=== PATIENT | male | born 1945 | race Caucasian/White ===

== ENCOUNTER 2022-01-01 09:35 | Observation (INO) | payer MEDICARE ==
--- NOTE | 2022-01-01 09:55 | ERPHSYRPT ---
- History of Present Illness Time Seen by Provider: 01/01/22 09:55 Source: patient Exam Limitations: no limitations Patient Subjective Stated Complaint: pt here for left calf pain for 4 days now, no injury, states hurts to walk on it Triage Nursing Assessment: pt alert, walked in, resp easy, skin w/d/p, no redness or swelling to right leg Physician History: This is a 76-year-old white male who has been complaining of left calf pain for 4 days. Patient denies any injury to this area. Patient said the left calf dunia ts to walk. Pain is worse in the morning and evening. Patient's primary care physician is Dr. Eagle. Patient went to the [facility] this morning and they ordered an ultrasound of the left lower extremity. However, I then decided to send the patient to the emergency room after the venous ultrasound was ordered. Patient denies chest pain. Patient denies cough. Patient denies hemoptysis. Patient denies shortness of breath Method of Injury: other Occurred: days ago (4) Quality: constant, aching Severity of Pain-Max: mild (To moderate) Severity of Pain-Current: mild (To moderate) Modifying Factors: Improves With: movement Associated Symptoms: other (Left calf hurts when he does ambulate but he can ambulate) Allergies/Adverse Reactions: No Known Drug Allergies Allergy (Unverified 01/01/22 09:47) Home Medications: Finasteride 5 mg [Proscar 5 MG] 5 mg PO DAILY 01/01/22 [History] Gabapentin [Neurontin] 600 mg PO TID 01/01/22 [History] Tamsulosin HCl 0.4 mg [Flomax 0.4 MG] 0.4 mg PO DAILY 01/01/22 [History] Hx Influenza Vaccination/Date Given: No Hx Pneumococcal Vaccination/Date Given: Yes Immunizations Up to Date: Yes Travel Risk - International Travel Have you traveled outside of the country in past 3 weeks: No - Coronavirus Screening Are you exhibiting any of the following symptoms?: No Close contact with a COVID-19 positive Pt in past 14-21 Days: No - Vaccine Status Have you recieved a Covid-19 vaccination: Yes Super[employer]ading: Moderna - Vaccination Dates Date of 2cond Vaccination (if applicable): 2020 - Review of Systems Constitutional: No Symptoms Eyes: No Symptoms Ears, Nose, & Throat: No Symptoms Respiratory: No Symptoms Cardiac: No Symptoms Abdominal/Gastrointestinal: No Symptoms Genitourinary Symptoms: No Symptoms Musculoskeletal: Myalgias (Left calf pain) Skin: No Symptoms Neurological: No Symptoms Psychological: No Symptoms Endocrine: No Symptoms Hematologic/Lymphatic: No Symptoms Immunological/Allergic: No Symptoms All Other Systems: Reviewed and Negative - Past Medical History Pertinent Past Medical History: No - Past Surgical History Past Surgical History: Yes Gastrointestinal: Appendectomy Musculoskeletal: Orthopedic Surgery Other Surgical History: shoulder,knee - Social History Smoking Status: Current some day smoker Exposure to second hand smoke: Yes Drug Use: none Patient Lives Alone: No - Nursing Vital Signs Nursing Vital Signs: Initial Vital Signs Temperature 97.4 F 01/01/22 09:53 Pulse Rate 75 01/01/22 09:53 Respiratory Rate 18 01/01/22 09:53 Blood Pressure 156/85 01/01/22 09:53 O2 Sat by Pulse Oximetry 97 01/01/22 09:53 Pain Scale Pain Intensity 6 - Physical Exam General Appearance: no apparent distress, alert, anxiety Eyes, Ears, Nose, Throat Exam: normal ENT inspection, moist mucous membranes Neck Exam: normal inspection, non-tender, supple, full range of motion Cardiovascular/Respiratory Exam: chest non-tender, no respiratory distress Gastrointestinal/Abdominal Exam: non-tender Back Exam: normal inspection, normal range of motion, No CVA tenderness, No vertebral tenderness Hips Exam: bilateral: non-tender, normal inspection, normal range of motion, no evidence of injury Legs Exam: right leg: non-tender, no evidence of injury, left leg: abrasions (Left pretibial region), soft tissue tenderness, bilateral leg: normal range of motion, other (Multiple superficial and large varicosities bilateral lower extremities) Knees Exam: bilateral knee: non-tender, normal inspection, normal range of motion, no evidence of injury Ankle Exam: bilateral ankle: non-tender, normal inspection, normal range of motion, no evidence of injury Neuro/Tendon Exam: normal sensation, normal motor functions, normal tendon functions Mental Status Exam: alert, oriented x 3, cooperative Skin Exam: normal color, warm, dry SpO2 Interpretation: normal SpO2: 97 O2 Delivery: Room Air Ordered Tests: Active Orders 24 hr Category Date Time Status IV Insertion STAT Care 01/01/22 12:55 Active ABDOMEN AND PELVIS W/0 CONTRAS [CT] Stat Exams 01/01/22 11:43 Taken CHEST WITHOUT CONTRAST [CT] Stat Exams 01/01/22 11:43 Taken VENOUS UNILAT/LIMITED EXTREMIT [US] Stat Exams 01/01/22 11:03 Taken CBC W DIFF Stat Lab 01/01/22 10:00 Completed CMP Stat Lab 01/01/22 10:00 Completed MAGNESIUM Stat Lab 01/01/22 10:00 Completed Transfer Order Routine Transfer 01/01/22 Ordered Medication Summary Discontinued Medications Generic Name Dose Route Start Last Admin Trade Name Ike PRN Reason Stop Dose Admin Enoxaparin Sodium 100 mg 01/01/22 11:31 01/01/22 12:23 Enoxaparin Sodium 120 Mg/0.8 Ml Syringe SQ 01/01/22 11:32 100 mg STAT STA Administration Enoxaparin Sodium Confirm 01/01/22 12:23 Enoxaparin Sodium 120 Mg/0.8 Ml Syringe Administered 01/01/22 12:24 Dose 120 mg SQ .[employer] ONE Lab/Rad Data: Laboratory Result Diagrams 01/01/22 10:00 01/01/22 10:00 Laboratory Results 01/01/22 01/01/22 01/01/22 Range/Units 11:59 10:00 10:00 WBC 5.6 (4.0-10.5) x10^3/uL RBC 3.79 L (4.1-5.6) x10^6/uL Hgb 12.2 L (12.5-18.0) g/dL Hct 36.1 L (42-50) % MCV 95.3 (78-100) fL MCH 32.2 H (26-32) pg MCHC 33.8 (32-36) g/dL RDW 12.0 (11.5-14.0) % Plt Count 185 (150-450) x10^3/uL MPV 9.0 (7.5-11.0) fL Gran % 59.9 (36.0-66.0) % Immature Gran % (Auto) 0.5 H (0.00-0.4) % Nucleat RBC Rel Count 0.0 (0.00-0.1) % Eos # (Auto) 0.30 (0-0.5) x10^3/uL Immature Gran # (Auto) 0.03 (0.00-0.03) x10^3u/L Absolute Lymphs (auto) 1.34 (1.0-4.6) x10^3/uL Absolute Monos (auto) 0.52 (0.0-1.3) x10^3/uL Absolute Nucleated RBC 0.00 (0.00-0.01) x10^3u/L Lymphocytes % 24.1 (24.0-44.0) % Monocytes % 9.4 (0.0-12.0) % Eosinophils % 5.4 H (0.00-5.0) % Basophils % 0.7 (0.0-0.4) % Absolute Granulocytes 3.33 (1.4-6.9) x10^3/uL Basophils # 0.04 (0-0.4) x10^3/uL Sodium 136 L (137-145) mmol/L Potassium 4.4 (3.5-5.1) mmol/L Chloride 103 (98-107) mmol/L Carbon Dioxide 27 (22-30) mmol/L Anion Gap 10.1 (5-15) MEQ/L BUN 23 H (9-20) mg/dL Creatinine 1.83 H (0.66-1.25) mg/dL Estimated GFR 38.7 ML/MIN Glucose 128 H (74-106) mg/dL Calcium 8.4 (8.4-10.2) mg/dL Magnesium 2.3 (1.6-2.3) mg/dL Total Bilirubin 1.20 (0.2-1.3) mg/dL AST 26 (17-59) U/L ALT 16 (0-50) U/L Alkaline Phosphatase 39 (38-126) U/L Serum Total Protein 7.1 (6.3-8.2) g/dL Albumin 4.0 (3.5-5.0) g/dL Influenza Type A Ag NEGATIVE (NEGATIVE) Influenza Type B Ag NEGATIVE (NEGATIVE) RSV (PCR) NEGATIVE (Negative) SARS-CoV-2 (PCR) NEGATIVE (NEGATIVE) - Progress Progress: unchanged, re-examined Progress Note: 01/01/22 12:04 Medical decision making: This patient has extensive left lower extremity DVT. This finding was reported to me by the operating room surgical technologist. I contacted Dr. Rueda who is covering for Dr. Eagle, this patient's primary care physician. Patient has a low GFR chronically. Therefore, we cannot perform a CT of the chest. We will anticoagulate him with Lovenox and then start him with oral Xarelto beginning tomorrow morning. We will then order a nuclear medicine VQ scan for 01/03/2022. Dr. Rueda wanted me to order a CT of the chest and abdomen and pelvis without contrast to evaluate for malignancy. I will order these tests and have them performed prior to him being transferred to the floor. Patient will be on a telemetry bed 01/01/22 12:59 CT of chest without contrast shows multiple bilateral lung nodules. Etiology unknown 01/01/22 13:01 CT of the abdomen without contrast shows gallstones and hepatosplenomegaly. Discussed with : Aaron Counseled pt/family regarding: lab results, diagnosis, rad results - Departure Departure Disposition: Home Clinical Impression: Left leg DVT, Lung nodule, multiple, Cholelithiasis, Hepatosplenomegaly Condition: Stable Critical Care Time: No Referrals: JEOVANNY EAGLE MD [Primary Care Provider] - Follow up/PCP as directed
[2022-01-01 10:36] LABS: Absolute Neutrophil Ct (ANC) 3.33 x10^3/uL (1.4-6.9); Basophil (Absolute #) 0.04 x10^3/uL (0-0.4); Eosinophil % 5.4 % (0.00-5.0); Hematocrit 36.1 % (42-50); Hemoglobin 12.2 g/dL (12.5-18.0); Lymphocyte (Absolute #) 1.34 x10^3/uL (1.0-4.6); Lymphocytes % 24.1 % (24.0-44.0); Mean Cell Volume 95.3 fL (78-100); Mean Corpuscular Hemoglobin 32.2 pg (26-32); Mean Corpuscular Hgb Concent. 33.8 g/dL (32-36); Monocyte (Absolute #) 0.52 x10^3/uL (0.0-1.3); Monocytes % 9.4 % (0.0-12.0); Neutrophil % 59.9 % (36.0-66.0); Platelet Count 185 x10^3/uL (150-450); Red Blood Count 3.79 x10^6/uL (4.1-5.6); White Blood Count 5.6 x10^3/uL (4.0-10.5)
[2022-01-01 11:06] LABS: ANION GAP 10.1 MEQ/L (5-15); BILIRUBIN,TOTAL 1.2 mg/dL (0.2-1.3); Calcium 8.4 mg/dL (8.4-10.2); Creatinine 1 1.83 mg/dL (0.66-1.25); EST GLOMERULAR FILTRATION RATE 38.7 ML/MIN; MAGNESIUM 2.3 mg/dL (1.6-2.3); Potassium 4.4 mmol/L (3.5-5.1); Total Protein 7.1 g/dL (6.3-8.2)
[2022-01-01] MEDS ORDERED: ENOXAPARIN SODIUM SQ STA (11:31)
[2022-01-01] MEDS ORDERED: ENOXAPARIN SODIUM SQ ONE (12:23)
[2022-01-01 12:40] LABS: INFLUENZA A NEGATIVE (NEGATIVE); INFLUENZA B NEGATIVE (NEGATIVE); RESPIRATORY SYNCTIAL VIRUS NEGATIVE (Negative); SARS-CoV-2 Xpert Express NEGATIVE (NEGATIVE)
[2022-01-01] MEDS ORDERED: TYLENOL 325 MG PO PRN (13:21)
[2022-01-01] MEDS ORDERED: Sodium Chloride 0.9% 1000 ML 1,000 ML IV SCH (13:21)
[2022-01-01] MEDS ORDERED: Zofran 4 MG/2 ML VIAL IV PRN (13:21)
[2022-01-01] MEDS ORDERED: xanAX 0.5 MG PO PRN (13:46)
[2022-01-01] MEDS ORDERED: FLUZONE HIGH-DOSE QUAD 2022-23 IM ONE (13:59)
[2022-01-01] MEDS ORDERED: NON-FORMULARY ITEM (Gabapentin [Neurontin] 600 MG Tablet) PO SCH (15:00)
[2022-01-01] MEDS: NEURONTIN PO SCH ×2 (15:53→22:09)
[2022-01-01] MEDS: Flomax 0.4 MG PO SCH (15:53)
[2022-01-01] MEDS: Tricor 145 MG PO SCH (15:54)
[2022-01-01] MEDS: Proscar 5 MG PO SCH (15:54)
--- NOTE | 2022-01-01 19:03 | XRAY ---
Indication: Evaluating for malignancy. Extensive left leg DVT. Multiple contiguous axial images obtained through the chest without contrast. Comparison: None There are a few scattered bilateral tiny noncalcified indeterminant nodules, largest 5 mm left upper lobe. Tiny left posterior gutter calcified granuloma. No infiltrate, consolidation, or effusion. Heart not enlarged with scattered coronary calcifications. Aorta mildly arteriosclerotic. Tiny left infrahilar calcified nodes. No pathologic mediastinal lymphadenopathy. Bony thorax intact with mild degenerative changes throughout the spine. CT abdomen/pelvis reported separately. Impression: Tiny bilateral indeterminate noncalcified micronodules. Findings possibly granulomatous as there is evidence for old granulomatous disease elsewhere. Outside comparison studies recommended. If not, recommend follow-up per Fleischner guidelines. Comment: Preliminary interpretation made by [facility] [place]. No critical discrepancy.
--- NOTE | 2022-01-01 19:05 | XRAY ---
Indication: Evaluating for malignancy. Extensive left leg DVT. Multiple contiguous axial images obtained through the abdomen and pelvis without contrast. Comparison: None CT chest reported separately. Noncontrasted stomach and bowel loops appear nonobstructed. Previous appendectomy. No free fluid/air. 1.3 x 2.7 cm gallstone. 15 cm splenomegaly. Remaining liver, gallbladder, pancreas, spleen, adrenal glands, kidneys, ureters, and bladder are unremarkable for noncontrast exam. Moderate scattered aortoiliac calcifications without AAA. Osseous structures intact with mild degenerative changes throughout the thoracolumbar spine. Small fatty left inguinal hernia. Impression: 1. Cholelithiasis, splenomegaly, degenerative spondylosis, small fatty left inguinal hernia, and arteriosclerotic disease. 2. Remaining CT abdomen/pelvis without contrast exam is negative. Comment: Preliminary interpretation made by [facility]. No critical discrepancy.
--- NOTE | 2022-01-01 19:07 | XRAY ---
Indication: Pain. Two-dimensional sonogram and color Doppler imaging of the major venous vessels of the left leg performed. Comparison: None There are occluding and nonoccluding thrombi throughout the visualized common femoral, deep femoral, femoral, and posterior tibial veins. Impression: Diffuse occluding and nonoccluding DVT throughout the left leg. Comment: Preliminary report was given.
[2022-01-01] MEDS ORDERED: ENOXAPARIN SODIUM SQ SCH (22:00)
[2022-01-01] MEDS: XARELTO 10 MG TABLET PO SCH (22:10)
[2022-01-02 04:08] VITALS: O2SAT 96
[2022-01-02 04:42] LABS: Absolute Neutrophil Ct (ANC) 2.32 x10^3/uL (1.4-6.9); Basophil (Absolute #) 0.04 x10^3/uL (0-0.4); Eosinophil % 7.6 % (0.00-5.0); Eosinophil (Absolute #) 0.38 x10^3/uL (0-0.5); Hematocrit 35.7 % (42-50); Hemoglobin 12.1 g/dL (12.5-18.0); Lymphocytes % 34.2 % (24.0-44.0); Mean Cell Volume 93.2 fL (78-100); Mean Corpuscular Hemoglobin 31.6 pg (26-32); Mean Corpuscular Hgb Concent. 33.9 g/dL (32-36); Mean Platelet Volume 9.3 fL (7.5-11.0); Monocytes % 10.1 % (0.0-12.0); Neutrophil % 46.7 % (36.0-66.0); Platelet Count 213 x10^3/uL (150-450); Red Blood Count 3.83 x10^6/uL (4.1-5.6); Red Cell Distribution Width 12.3 % (11.5-14.0)
[2022-01-02 04:57] LABS: ALBUMIN 3.8 g/dL (3.5-5.0); ANION GAP 9.2 MEQ/L (5-15); BILIRUBIN,TOTAL 1.1 mg/dL (0.2-1.3); Calcium 8.4 mg/dL (8.4-10.2); Creatinine 1 1.81 mg/dL (0.66-1.25); EST GLOMERULAR FILTRATION RATE 39.1 ML/MIN; Potassium 4.4 mmol/L (3.5-5.1)
[2022-01-02 08:10] VITALS: PULSE 63
[2022-01-02] MEDS: NEURONTIN PO SCH (09:05)
[2022-01-02] MEDS: XARELTO 10 MG TABLET PO SCH (09:05)
[2022-01-02] MEDS: Proscar 5 MG PO SCH (09:06)
[2022-01-02] MEDS: Tricor 145 MG PO SCH (09:06)
[2022-01-02] MEDS ORDERED: NON-FORMULARY ITEM (Fenofibrate [Fenofibrate] 160 MG Tablet) PO SCH (10:00)
[2022-01-02] MEDS: Flomax 0.4 MG PO SCH (12:12)
[2022-01-02 12:14] VITALS: BP 120/60
--- NOTE | 2022-01-02 13:02 | PCM.SSS ---
History of Present Illness - Chief Complaint Chief Complaint: left calf pain for 4 days History of Present Illness: is a 76 year old male.who has been complaining of left calf pain for 4 days. Patient denies any injury to this area. Patient said the left calf hurts to walk. Pain is worse in the morning and evening. Patient's primary care physician is Dr. Eagle. Patient went to [facility] this morning and they ordered an ultrasound of the left lower extremity. However, I then decided to send the patient to the emergency room after the venous ultrasound was ordered. Patient denies chest pain. Patient denies cough. Patient denies hemoptysis. Patient denies shortness of breath Method of Injury: other Occurred: days ago (4) Quality: constant, aching Severity of Pain-Max: mild (To moderate) Severity of Pain-Current: mild (To moderate) Modifying Factors: Improves With: movement Associated Symptoms: other (Left calf hurts when he does ambulate but he can ambulate) - Review of Systems Constitutional: No Fever, No Chills Eyes: No Symptoms Ears, Nose, & Throat: No Symptoms Respiratory: No Cough, No Short Of Breath Cardiac: No Chest Pain, No Edema, No Syncope Abdominal/Gastrointestinal: No Abdominal Pain, No Nausea, No Vomiting, No Diarrhea Genitourinary Symptoms: No Dysuria Musculoskeletal: Other (left calf pain), No Back Pain, No Neck Pain Skin: No Rash Neurological: No Dizziness, No Focal Weakness, No Sensory Changes Psychological: No Symptoms Endocrine: No Symptoms Hematologic/Lymphatic: No Symptoms Immunological/Allergic: No Symptoms Medications & Allergies Home Medications: Home Medication List ALPRAZolam [Alprazolam] 0.5 mg PO TID PRN 01/01/22 [History Confirmed 01/01/22] Fenofibrate 160 mg PO DAILY 01/01/22 [History Confirmed 01/01/22] Finasteride 5 mg [Proscar 5 MG] 5 mg PO DAILY 01/01/22 [History Confirmed 01/01/22] Gabapentin [Neurontin] 600 mg PO TID 01/01/22 [History Confirmed 01/01/22] Tamsulosin HCl 0.4 mg [Flomax 0.4 MG] 0.8 mg PO LUNCH 01/01/22 [History Confirmed 01/01/22] Rivaroxaban [Xarelto] 15 mg PO BID 21 Days #42 tablet 01/02/22 [Rx] Allergies/Adverse Reactions: Allergies Allergy/AdvReac Type Severity Reaction Status Date / Time No Known Drug Allergies Allergy Unverified 01/01/22 09:47 - Past Medical History Past Medical History: No Cardiac History: No Pertinent History Respiratory History: No Pertinent History, COPD, Other (multiple lung granulomas) Endocrine Medical History: No Pertinent History Musculoskelatal History: Arthritis, Fractures GI Medical History: No Pertinent History History: No Pertinent History Pyscho-Social History: Anxiety Male Reproductive Disorders: No Pertinent History - Past Surgical History Past Surgical History: Yes Neuro Surgical History: No Pertinent History Cardiac History: No Pertinent History Respiratory Surgery: No Pertinent History GI Surgical History: Appendectomy Genitourinary Surgical Hx: No Pertinent History Musculskeletal Surgical Hx: Orthopedic Surgery Male Surgical History: No Pertinent History Other Surgical History: shoulder, knee - Social History Smoking Status: Current some day smoker Exposure to second hand smoke: Yes Alcohol: None Drug Use: none - Physical Exam Vital Signs: Vital Signs - 24 hr Temp Pulse Resp BP Pulse Ox 01/02/22 12:00 63 18 120/60 01/02/22 08:00 97.3 F 63 18 109/67 96 01/02/22 04:00 97.6 F 76 18 105/63 96 01/02/22 00:00 17 01/01/22 23:51 97.8 F 69 17 123/58 97 01/01/22 20:00 97.6 F 74 20 117/76 96 01/01/22 16:00 97.5 F 71 18 120/65 96 01/01/22 13:51 97.3 F 66 18 120/73 97 01/01/22 13:01 97 General Appearance: no apparent distress, alert Neurologic Exam: alert, oriented x 3, cooperative, normal mood/affect, nml cerebellar function, nml station & gait, sensation nml, No motor deficits Eye Exam: PERRL/EOMI, eyes nml inspection Ears, Nose, Throat Exam: normal ENT inspection, TMs normal, pharynx normal, moist mucous membranes Neck Exam: normal inspection, non-tender, supple, full range of motion Respiratory Exam: normal breath sounds, lungs clear, No respiratory distress Cardiovascular Exam: regular rate/rhythm, normal heart sounds, normal peripheral pulses Gastrointestinal/Abdomen Exam: soft, normal bowel sounds, No tenderness, No mass Back Exam: normal inspection, normal range of motion, No CVA tenderness, No vertebral tenderness Extremity Exam: normal inspection, normal range of motion, pelvis stable, carmen's sign (left side) Skin Exam: normal color, warm, dry, No rash Wound Assessment: Skin/Wound Assessment Wound/Incision Assessment Start: 01/01/22 14:17 Text: Status: Active Freq: Q6H Protocol: Document 01/02/22 08:00 ADRIENNE (Rec: 01/02/22 08:14 ADRIENNE [id number]) Wound/Incision Assessment Left Lower Anterior Calf Wound Assessment Shift Assessment Wound Type Abrasion Wound Stage Non Pressure Wound Dressing Status Dry & Intact Drainage Amount None Drainage Odor None/Absent General Appearance Open to air,Clean/Dry Surrounding Tissue [employer] Wound Photo Photo Taken No Lymphatic Exam: No adenopathy Results - Labs Lab/Micro Results: Lab Results-Last 24 Hours 01/02/22 01/02/22 Range/Units 04:20 04:20 WBC 5.0 (4.0-10.5) x10^3/uL RBC 3.83 L (4.1-5.6) x10^6/uL Hgb 12.1 L (12.5-18.0) g/dL Hct 35.7 L (42-50) % MCV 93.2 (78-100) fL MCH 31.6 (26-32) pg MCHC 33.9 (32-36) g/dL RDW 12.3 (11.5-14.0) % Plt Count 213 (150-450) x10^3/uL MPV 9.3 (7.5-11.0) fL Gran % 46.7 (36.0-66.0) % Immature Gran % (Auto) 0.6 H (0.00-0.4) % Nucleat RBC Rel Count 0.0 (0.00-0.1) % Eos # (Auto) 0.38 (0-0.5) x10^3/uL Immature Gran # (Auto) 0.03 (0.00-0.03) x10^3u/L Absolute Lymphs (auto) 1.70 (1.0-4.6) x10^3/uL Absolute Monos (auto) 0.50 (0.0-1.3) x10^3/uL Absolute Nucleated RBC 0.00 (0.00-0.01) x10^3u/L Lymphocytes % 34.2 (24.0-44.0) % Monocytes % 10.1 (0.0-12.0) % Eosinophils % 7.6 H (0.00-5.0) % Basophils % 0.8 (0.0-0.4) % Absolute Granulocytes 2.32 (1.4-6.9) x10^3/uL Basophils # 0.04 (0-0.4) x10^3/uL Sodium 135 L (137-145) mmol/L Potassium 4.4 (3.5-5.1) mmol/L Chloride 105 (98-107) mmol/L Carbon Dioxide 26 (22-30) mmol/L Anion Gap 9.2 (5-15) MEQ/L BUN 25 H (9-20) mg/dL Creatinine 1.81 H (0.66-1.25) mg/dL Estimated GFR 39.1 ML/MIN Glucose 102 (74-106) mg/dL Calcium 8.4 (8.4-10.2) mg/dL Total Bilirubin 1.10 (0.2-1.3) mg/dL AST 31 (17-59) U/L ALT 15 (0-50) U/L Alkaline Phosphatase 39 (38-126) U/L Serum Total Protein 7.0 (6.3-8.2) g/dL Albumin 3.8 (3.5-5.0) g/dL - Radiology Impressions Radiology Exams & Impressions: Radiology Procedures Category Date Time Status ABDOMEN AND PELVIS W/0 CONTRAS [CT] Stat Exams 01/01/22 11:43 Completed CHEST WITHOUT CONTRAST [CT] Stat Exams 01/01/22 11:43 Completed VENOUS UNILAT/LIMITED EXTREMIT [US] Stat Exams 01/01/22 11:03 Completed US/VENOUS UNILAT/LIMITED EXTREMIT Indication: Pain. Two-dimensional sonogram and color Doppler imaging of the major venous vessels of the left leg performed. Comparison: None There are occluding and nonoccluding thrombi throughout the visualized common femoral, deep femoral, femoral, and posterior tibial veins. Impression: Diffuse occluding and nonoccluding DVT throughout the left leg. CT/CHEST WITHOUT CONTRAST Indication: Evaluating for malignancy. Extensive left leg DVT. Multiple contiguous axial images obtained through the chest without contrast. Comparison: None There are a few scattered bilateral tiny noncalcified indeterminant nodules, largest 5 mm left upper lobe. Tiny left posterior gutter calcified granuloma. No infiltrate, consolidation, or effusion. Heart not enlarged with scattered coronary calcifications. Aorta mildly arteriosclerotic. Tiny left infrahilar calcified nodes. No pathologic mediastinal lymphadenopathy. Bony thorax intact with mild degenerative changes throughout the spine. CT abdomen/pelvis reported separately. Impression: Tiny bilateral indeterminate noncalcified micronodules. Findings possibly granulomatous as there is evidence for old granulomatous disease elsewhere. Outside comparison studies recommended. If not, recommend follow-up per Fleischner guidelines. 0004 CT/ABDOMEN AND PELVIS W/0 CONTRAS Indication: Evaluating for malignancy. Extensive left leg DVT. Multiple contiguous axial images obtained through the abdomen and pelvis without contrast. Comparison: None CT chest reported separately. Noncontrasted stomach and bowel loops appear nonobstructed. Previous appendectomy. No free fluid/air. 1.3 x 2.7 cm gallstone. 15 cm splenomegaly. Remaining liver, gallbladder, pancreas, spleen, adrenal glands, kidneys, ureters, and bladder are unremarkable for noncontrast exam. Moderate scattered aortoiliac calcifications without AAA. Osseous structures intact with mild degenerative changes throughout the thoracolumbar spine. Small fatty left inguinal hernia. Impression: 1. Cholelithiasis, splenomegaly, degenerative spondylosis, small fatty left inguinal hernia, and arteriosclerotic disease. 2. Remaining CT abdomen/pelvis without contrast exam is negative. - Other Procedures and Tests Respiratory Therapy 01/01/22 14:17 Smoking Cessation Education ONCE Assessment/Plan (1) Left leg DVT Current Visit: Yes Status: Acute Qualifiers: Affected thrombotic vein of extremity: unspecified lower extremity proximal vein Chronicity: acute Qualified Code(s): I82.4Y2 - Acute embolism and thrombosis of unspecified deep veins of left proximal lower extremity Assessment & Plan: Chief Complaint Diagnosis left calf pain for 4 days Allergies Allergy/AdvReac Type Severity Reaction Status Date / Time No Known Drug Allergies Allergy Unverified 01/01/22 09:47 Vital Signs (Last 24 hours) Temp Pulse Resp BP Pulse Ox 01/02/22 12:00 63 18 120/60 01/02/22 08:00 97.3 F 63 18 109/67 96 01/02/22 04:00 97.6 F 76 18 105/63 96 01/02/22 00:00 17 01/01/22 23:51 97.8 F 69 17 123/58 97 01/01/22 20:00 97.6 F 74 20 117/76 96 01/01/22 16:00 97.5 F 71 18 120/65 96 01/01/22 13:51 97.3 F 66 18 120/73 97 Home Medications Medication Instructions Recorded Confirmed Last Taken Type ALPRAZolam [Alprazolam] 0.5 mg PO TID PRN 01/01/22 01/01/22 Unknown History Fenofibrate 160 mg PO DAILY 01/01/22 01/01/22 12/31/21 History Finasteride 5 mg [Proscar 5 5 mg PO DAILY 01/01/22 01/01/22 12/31/21 History MG] Gabapentin [Neurontin] 600 mg PO TID 01/01/22 01/01/22 12/31/21 History Tamsulosin HCl 0.4 mg [Flomax 0.8 mg PO LUNCH 01/01/22 01/01/22 12/31/21 History 0.4 MG] Rivaroxaban [Xarelto] 15 mg PO BID 21 Days #42 tablet 01/02/22 Unknown Rx Current Medications Generic Name Dose Route Start Last Admin Trade Name Freq PRN Reason Stop Dose Admin Acetaminophen 650 mg 01/01/22 13:21 01/02/22 04:17 Acetaminophen 325 Mg Tablet PO 01/31/22 13:20 650 mg Q4H PRN PRN Administration PAIN, FEVER, HEADACHE Alprazolam 0.5 mg 01/01/22 13:46 01/01/22 22:15 Alprazolam 0.5 Mg Tablet PO 01/31/22 13:45 0.5 mg TID PRN PRN Administration ANXIETY Fenofibrate 145 mg 01/01/22 14:00 01/02/22 09:06 Fenofibrate,Micronized 145 Mg Tablet PO 01/31/22 13:59 145 mg DAILY LALA Administration Finasteride 5 mg 01/01/22 14:00 01/02/22 09:06 Finasteride 5 Mg Tablet PO 01/31/22 13:59 5 mg DAILY LALA Administration Gabapentin 600 mg 01/01/22 15:00 01/02/22 09:05 Gabapentin 300 Mg Capsule PO 01/31/22 14:59 600 mg TID LALA Administration Ondansetron HCl 4 mg 01/01/22 13:21 Ondansetron Hcl 4 Mg/2 Ml Vial IV 01/31/22 13:20 Q6H PRN PRN NAUSEA/VOMITING Rivaroxaban 15 mg 01/01/22 22:00 01/02/22 09:05 Rivaroxaban 10 Mg Tablet PO 01/31/22 21:59 15 mg BID LALA Administration Tamsulosin HCl 0.8 mg 01/01/22 14:00 01/02/22 12:12 Tamsulosin Hcl 0.4 Mg Cap PO 01/31/22 13:59 Not Given LUNCH LALA Discontinued Medications Generic Name Dose Route Start Last Admin Trade Name Freq PRN Reason Stop Dose Admin Enoxaparin Sodium 100 mg 01/01/22 11:31 01/01/22 12:23 Enoxaparin Sodium 120 Mg/0.8 Ml Syringe SQ 01/01/22 11:32 100 mg STAT STA Administration Enoxaparin Sodium Confirm 01/01/22 12:23 Enoxaparin Sodium 120 Mg/0.8 Ml Syringe Administered 01/01/22 12:24 Dose 120 mg SQ .STK-MED ONE Enoxaparin Sodium 100 mg 01/01/22 22:00 Enoxaparin Sodium 120 Mg/0.8 Ml Syringe SQ 01/31/22 21:59 Q12HT LALA Sodium Chloride 1,000 mls @ 30 mls/hr 01/01/22 13:21 01/02/22 08:15 Sodium Chloride 0.9% 1000 Ml IV 01/31/22 13:20 Not Given .Q24H LALA Intake & Output (Last 24 hours) 12/31/21 01/01/22 01/02/22 01/03/22 11:59 11:59 11:59 11:59 Intake Total 0 Balance 1880 Weight 95.254 kg 94.6 kg Laboratory Results (Last 24 hours) 01/02/22 01/02/22 04:20 04:20 WBC 5.0 RBC 3.83 L Hgb 12.1 L Hct 35.7 L MCV 93.2 MCH 31.6 MCHC 33.9 RDW 12.3 Plt Count 213 MPV 9.3 Gran % 46.7 Immature Gran % (Auto) 0.6 H Nucleat RBC Rel Count 0.0 Eos # (Auto) 0.38 Immature Gran # (Auto) 0.03 Absolute Lymphs (auto) 1.70 Absolute Monos (auto) 0.50 Absolute Nucleated RBC 0.00 Lymphocytes % 34.2 Monocytes % 10.1 Eosinophils % 7.6 H Basophils % 0.8 Absolute Granulocytes 2.32 Basophils # 0.04 Sodium 135 L Potassium 4.4 Chloride 105 Carbon Dioxide 26 Anion Gap 9.2 BUN 25 H Creatinine 1.81 H Estimated GFR 39.1 Glucose 102 Calcium 8.4 Total Bilirubin 1.10 AST 31 ALT 15 Alkaline Phosphatase 39 Serum Total Protein 7.0 Albumin 3.8 Orders (Last 24 hours) Category Date Time Status Bedrest with BRP/BSC TOLERATED Activity 01/01/22 13:21 Active Admit as Inpatient ROUTINE Care 01/01/22 13:21 Completed IV Insertion STAT Care 01/01/22 12:[address] in Observation ROUTINE Care 01/01/22 13:21 Active Telemetry q4h Care 01/01/22 13:21 Active Weight,Daily 0600 Care 01/01/22 13:21 Active House Regular Diet Diet 01/02/22 Lunch Active Discharge Routine Discharge 01/02/22 Ordered CBC W DIFF AM.LAB Lab 01/02/22 04:20 Completed CMP AM.LAB Lab 01/02/22 04:20 Completed ALPRAZolam 0.5 MG [xanAX 0.5 MG] Med 01/01/22 13:46 Active 0.5 mg PO TID PRN PRN Acetaminophen 325 mg [Tylenol 325 mg] Med 01/01/22 13:21 Active 650 mg PO Q4H PRN PRN Enoxaparin Sodium [Enoxaparin Sodium] Med 01/01/22 22:00 Discontinued 100 mg SQ Q12HT Enoxaparin Sodium [Enoxaparin Sodium] Med 01/01/22 12:23 Discontinued 120 mg SQ .STK-MED ONE Fenofibrate,Micronized 145 mg* [Tricor 145 MG] Med 01/01/22 14:00 Active 145 mg PO DAILY Finasteride 5 mg [Proscar 5 MG] Med 01/01/22 14:00 Active 5 mg PO DAILY Flu Vacc [id number](65Yr Up)/Pf [Fluzone High-Dose Quad Med 01/01/22 13:59 Discontinued ] 240 mcg IM .ONCE ONE Gabapentin [Neurontin ] Med 01/01/22 15:00 Active 600 mg PO TID NaCl 0.9% 1000 ml [Sodium Chloride 0.9% 1000 ML] 1,000 Med 01/01/22 13:21 Discontinued ml IV 30 mls/hr Ondansetron HCl 4 mg/2 ml [Zofran 4 MG/2 ML VIAL] Med 01/01/22 13:21 Active 4 mg IV Q6H PRN PRN Rivaroxaban 10 mg Tablet [Xarelto 10 mg Tablet] Med 01/01/22 22:00 Active 15 mg PO BID Tamsulosin HCl 0.4 mg [Flomax 0.4 MG] Med 01/01/22 14:00 Active 0.8 mg PO LUNCH Pulse Oximetry ROUTINE RT 01/01/22 13:21 Completed Smoking Cessation Education ONCE RT 01/01/22 14:17 Active Patient has been started on xarelto 15 mg po twice a day for one week followed by 20 mg daily. Strongly advised to follow up with Dr Eagle for further work up for multiple lung nodules and gall stones. Patient understood vebalised instructions and nurse was present at time of discussion. Code(s): I82.402 - ACUTE EMBOLISM AND THOMBOS UNSP DEEP VEINS OF L LOW EXTREM (2) Lung nodule, multiple Current Visit: Yes Status: Acute (3) Cholelithiasis Current Visit: Yes Status: Acute Hospital Summary - Hospital Course Hospital Course: Last Vital Signs Temp 97.3 F 01/02/22 08:00 Pulse 63 01/02/22 12:00 Resp 18 01/02/22 12:00 BP 120/60 01/02/22 12:00 Pulse Ox 96 01/02/22 08:00 Allergies No Known Drug Allergies Allergy (Unverified 01/01/22 09:47) Active Medications Acetaminophen (Acetaminophen 325 Mg Tablet) 650 mg PO Q4H PRN PRN PRN Reason: PAIN, FEVER, HEADACHE Stop: 01/31/22 13:20 Last Admin: 01/02/22 04:17 Dose: 650 mg Alprazolam (Alprazolam 0.5 Mg Tablet) 0.5 mg PO TID PRN PRN PRN Reason: ANXIETY Stop: 01/31/22 13:45 Last Admin: 01/01/22 22:15 Dose: 0.5 mg Fenofibrate (Fenofibrate,Micronized 145 Mg Tablet) 145 mg PO DAILY LALA Stop: 01/31/22 13:59 Last Admin: 01/02/22 09:06 Dose: 145 mg Finasteride (Finasteride 5 Mg Tablet) 5 mg PO DAILY [facility] Stop: 01/31/22 13:59 Last Admin: 01/02/22 09:06 Dose: 5 mg Gabapentin (Gabapentin 300 Mg Capsule) 600 mg PO TID [facility] Stop: 01/31/22 14:59 Last Admin: 01/02/22 09:05 Dose: 600 mg Ondansetron HCl (Ondansetron Hcl 4 Mg/2 Ml Vial) 4 mg IV Q6H PRN PRN PRN Reason: NAUSEA/VOMITING Stop: 01/31/22 13:20 Rivaroxaban (Rivaroxaban 10 Mg Tablet) 15 mg PO BID [facility] Stop: 01/31/22 21:59 Last Admin: 01/02/22 09:05 Dose: 15 mg Tamsulosin HCl (Tamsulosin Hcl 0.4 Mg Cap) 0.8 mg PO LUNCH [facility] Stop: 01/31/22 13:59 Last Admin: 01/02/22 12:12 Dose: Not Given Intake & Output 01/02/22 01/03/22 11:59 11:59 Intake Total 1880 Balance 1880 Weight 94.6 kg Orders 01/01/22 13:21 Place in Observation ROUTINE 01/01/22 13:46 ALPRAZolam 0.5 MG [xanAX 0.5 MG] 0.5 mg PO TID PRN PRN 01/01/22 14:00 Fenofibrate,Micronized 145 mg* [Tricor 145 MG] 145 mg PO DAILY Finasteride 5 mg [Proscar 5 MG] 5 mg PO DAILY Tamsulosin HCl 0.4 mg [Flomax 0.4 MG] 0.8 mg PO LUNCH 01/01/22 15:00 Gabapentin [Neurontin ] 600 mg PO TID 01/02/22 Discharge Routine 01/02/22 Lunch House Regular Diet Lab Tests 01/02/22 01/02/22 04:20 04:20 WBC 5.0 RBC 3.83 L Hgb 12.1 L Hct 35.7 L MCV 93.2 MCH 31.6 MCHC 33.9 RDW 12.3 Plt Count 213 MPV 9.3 Gran % 46.7 Immature Gran % (Auto) 0.6 H Nucleat RBC Rel Count 0.0 Eos # (Auto) 0.38 Immature Gran # (Auto) 0.03 Absolute Lymphs (auto) 1.70 Absolute Monos (auto) 0.50 Absolute Nucleated RBC 0.00 Lymphocytes % 34.2 Monocytes % 10.1 Eosinophils % 7.6 H Basophils % 0.8 Absolute Granulocytes 2.32 Basophils # 0.04 Sodium 135 L Potassium 4.4 Chloride 105 Carbon Dioxide 26 Anion Gap 9.2 BUN 25 H Creatinine 1.81 H Estimated GFR 39.1 Glucose 102 Calcium 8.4 Total Bilirubin 1.10 AST 31 ALT 15 Alkaline Phosphatase 39 Serum Total Protein 7.0 Albumin 3.8 Medication Adminisitration Report Acetaminophen (Acetaminophen 325 Mg Tablet) 650 mg PO Q4H PRN PRN PRN Reason: PAIN, FEVER, HEADACHE Stop: 01/31/22 13:20 Last Admin: 01/02/22 04:17 Dose: 650 mg Documented by: CHEL MAR PAIN Document 01/02/22 04:17 LB (Rec: 01/02/22 04:17 LB [id number]) Reassesment Pain Site Left Location Calf Pain Scale Used 0-10 Pain Scale Pain Intensity (0-10) 7 Re-Assess: Pain Reassessment Document 01/02/22 04:47 ADRIENNE (Rec: 01/02/22 08:15 JM [id number]) Pain Description Pain Scale Used 0-10 Pain Scale Alprazolam (Alprazolam 0.5 Mg Tablet) 0.5 mg PO TID PRN PRN PRN Reason: ANXIETY Stop: 01/31/22 13:45 Last Admin: 01/01/22 22:15 Dose: 0.5 mg Documented by: CHEL Fenofibrate (Fenofibrate,Micronized 145 Mg Tablet) 145 mg PO DAILY LALA Stop: 01/31/22 13:59 Last Admin: 01/02/22 09:06 Dose: 145 mg Documented by: Admin: 01/01/22 15:54 Dose: 145 mg Documented by: SUSHIL Finasteride (Finasteride 5 Mg Tablet) 5 mg PO DAILY LALA Stop: 01/31/22 13:59 Last Admin: 01/02/22 09:06 Dose: 5 mg Documented by: Admin: 01/01/22 15:54 Dose: 5 mg Documented by: SUSHIL Gabapentin (Gabapentin 300 Mg Capsule) 600 mg PO TID LALA Stop: 01/31/22 14:59 Last Admin: 01/02/22 09:05 Dose: 600 mg Documented by: Admin: 01/01/22 22:09 Dose: 600 mg Documented by: Admin: 01/01/22 15:53 Dose: 600 mg Documented by: SUSHIL Ondansetron HCl (Ondansetron Hcl 4 Mg/2 Ml Vial) 4 mg IV Q6H PRN PRN PRN Reason: NAUSEA/VOMITING Stop: 01/31/22 13:20 Rivaroxaban (Rivaroxaban 10 Mg Tablet) 15 mg PO BID LALA Stop: 01/31/22 21:59 Last Admin: 01/02/22 09:05 Dose: 15 mg Documented by: Admin: 01/01/22 22:10 Dose: 15 mg Documented by: CHEL Tamsulosin HCl (Tamsulosin Hcl 0.4 Mg Cap) 0.8 mg PO LUNCH LALA Stop: 01/31/22 13:59 Last Admin: 01/02/22 12:12 Dose: Not Given Documented by: ADRIENNE Non-Admin Reason: DC'D Admin: 01/01/22 15:53 Dose: 0.8 mg Documented by: SUSHIL Discontinued Medications Enoxaparin Sodium (Enoxaparin Sodium 120 Mg/0.8 Ml Syringe) 100 mg SQ STAT STA Stop: 01/01/22 11:32 Last Admin: 01/01/22 12:23 Dose: 100 mg Documented by: JESUS Medication Administration Document 01/01/22 12:23 (Rec: 01/01/22 12:23 [id number]) Type of Injection IM/SQ Injection Yes Antibiotic IM Injection No Injection Site MAR Injection Site Left Lower Quad Enoxaparin Sodium (Enoxaparin Sodium 120 Mg/0.8 Ml Syringe) Confirm Administered Dose 120 mg SQ .STK-MED ONE Stop: 01/01/22 12:24 Enoxaparin Sodium (Enoxaparin Sodium 120 Mg/0.8 Ml Syringe) 100 mg SQ Q12HT [facility] Stop: 01/31/22 21:59 Sodium Chloride (Sodium Chloride 0.9% 1000 Ml) 1,000 mls @ 30 mls/hr IV .Q24H [facility] Stop: 01/31/22 13:20 Last Admin: 01/02/22 08:15 Dose: Not Given Documented by: ADRIENNE Non-Admin Reason: IV Infusing - Vitals & Intake/Output Vital Signs: Vital Signs Temperature 97.3 F 01/02/22 08:00 Pulse Rate 63 01/02/22 12:00 Respiratory Rate 18 01/02/22 12:00 Blood Pressure 120/60 01/02/22 12:00 O2 Sat by Pulse Oximetry 96 01/02/22 08:00 Intake & Output: Intake & Output 12/31/21 01/01/22 01/02/22 01/03/22 11:59 11:59 11:59 11:59 Intake Total 1880 Balance 1880 Weight 95.254 kg 94.6 kg - Lab Result Diagrams: 01/02/22 04:20 01/02/22 04:20 Lab Results-Last 24 Hrs: Lab Results-Last 24 Hours 01/02/22 01/02/22 Range/Units 04:20 04:20 WBC 5.0 (4.0-10.5) x10^3/uL RBC 3.83 L (4.1-5.6) x10^6/uL Hgb 12.1 L (12.5-18.0) g/dL Hct 35.7 L (42-50) % MCV 93.2 (78-100) fL MCH 31.6 (26-32) pg MCHC 33.9 (32-36) g/dL RDW 12.3 (11.5-14.0) % Plt Count 213 (150-450) x10^3/uL MPV 9.3 (7.5-11.0) fL Gran % 46.7 (36.0-66.0) % Immature Gran % (Auto) 0.6 H (0.00-0.4) % Nucleat RBC Rel Count 0.0 (0.00-0.1) % Eos # (Auto) 0.38 (0-0.5) x10^3/uL Immature Gran # (Auto) 0.03 (0.00-0.03) x10^3u/L Absolute Lymphs (auto) 1.70 (1.0-4.6) x10^3/uL Absolute Monos (auto) 0.50 (0.0-1.3) x10^3/uL Absolute Nucleated RBC 0.00 (0.00-0.01) x10^3u/L Lymphocytes % 34.2 (24.0-44.0) % Monocytes % 10.1 (0.0-12.0) % Eosinophils % 7.6 H (0.00-5.0) % Basophils % 0.8 (0.0-0.4) % Absolute Granulocytes 2.32 (1.4-6.9) x10^3/uL Basophils # 0.04 (0-0.4) x10^3/uL Sodium 135 L (137-145) mmol/L Potassium 4.4 (3.5-5.1) mmol/L Chloride 105 (98-107) mmol/L Carbon Dioxide 26 (22-30) mmol/L Anion Gap 9.2 (5-15) MEQ/L BUN 25 H (9-20) mg/dL Creatinine 1.81 H (0.66-1.25) mg/dL Estimated GFR 39.1 ML/MIN Glucose 102 (74-106) mg/dL Calcium 8.4 (8.4-10.2) mg/dL Total Bilirubin 1.10 (0.2-1.3) mg/dL AST 31 (17-59) U/L ALT 15 (0-50) U/L Alkaline Phosphatase 39 (38-126) U/L Serum Total Protein 7.0 (6.3-8.2) g/dL Albumin 3.8 (3.5-5.0) g/dL - Radiology Exams Ordered Rad Exams-Entire Visit: Radiology Procedures Category Date Time Status ABDOMEN AND PELVIS W/0 CONTRAS [CT] Stat Exams 01/01/22 11:43 Completed CHEST WITHOUT CONTRAST [CT] Stat Exams 01/01/22 11:43 Completed VENOUS UNILAT/LIMITED EXTREMIT [US] Stat Exams 01/01/22 11:03 Completed - Procedures and Test Procedures and Tests throughout Hospitalization: Therapy Orders & Screens 01/01/22 14:17 Smoking Cessation Education ONCE Comment: Diagnosis: DVT Smoking Status: Current some day smoker Do you dip or chew tobacco: No - Discharge Discharge Date: 01/02/22 Disposition: Home, Self-Care Condition: Stable Prescriptions: New Rivaroxaban [Xarelto] 15 mg PO BID 21 Days #42 tablet No Action Tamsulosin HCl 0.4 mg [Flomax 0.4 MG] 0.8 mg PO LUNCH Gabapentin [Neurontin] 600 mg PO TID Finasteride 5 mg [Proscar 5 MG] 5 mg PO DAILY Fenofibrate 160 mg PO DAILY ALPRAZolam [Alprazolam] 0.5 mg PO TID PRN PRN Reason: Anxiety Instructions: Rivaroxaban, Deep Vein Thrombosis (Blood Clots in the Legs) (DC), Preventing Falls in Older Adults, Gallstones (DC), Going Home on Blood Thinners Additional Instructions: -FOLLOW UP WITH DR EAGLE ON MONDAY OR MONDAY IN REGARDS TO BLOOD CLOT IN LEGS, GALLSTONES AND SPOT ON LUNG. -WE ARE SENDING YOU HOME WITH 2 DOSES OF XARELTO (BLOOD THINNER). YOU WILL NEED TO TAKE ONE AND A HALF PILLS TONIGHT BEFORE BED AND THEN ONE AND A HALF PILLS TOMORROW MORNING. OUR DISCHARGE PLANNERS WILL CALL YOUR PHARMACY TOMORROW MORNING TO MAKE SURE IT IS AFFORDABLE THROUGH YOUR INSURANCE. SHE WILL THEN REACH OUT TO YOU TO LET YOU KNOW. YOU CAN CALL THEM WITH ANY QUESTIONS AT [phone] --ASK FOR THE DISCHARGE PLANNERS (EITHER ROBER OR NOHEMY). -YOU WILL BE ON XARELTO AT 15MG TWICE A DAY FOR 21 DAYS THEN YOUR DOSE WILL BE DECREASED BY DR EAGLE. Follow up with: JEOVANNY EAGLE MD [Primary Care Provider] - Call for Appointment
== END 2022-01-02 14:02 | disposition home or self-care (01) ==
LOC: ED 09:35 → OBSVTOIN 13:15 → INTOOBSV 13:15 → MED SURG 13:15
PROVIDERS: ADMIT General Practice; ATTEND Family Medicine
DX: I82.4Y2 Acute embolism and thrombosis of unspecified deep veins of left proximal lower extremity (principal); R91.1 Solitary pulmonary nodule; K80.20 Calculus of gallbladder without cholecystitis without obstruction; S80.812A Abrasion, left lower leg, initial encounter; Z79.899 Other long term (current) drug therapy; Z20.828 Contact with and (suspected) exposure to other viral communicable diseases; Z72.0 Tobacco use; Z23 Encounter for immunization
CPT/HCPCS: 0241U; 36000; 36415; 71250; 74176; 80053; 83735; 85025; 93268; 93971; 96372; 99285; G0008; G0378; 90662; J1650; A9270-GY